=== PATIENT | female | born 2000 | race Hispanic/Latino ===

== ENCOUNTER 2022-05-14 12:26 | Emergency (ER) | payer SELFPAY ==
[2022-05-14] MEDS ORDERED: ACET-683 PO (13:29)
[2022-05-14] MEDS ORDERED: MULTTAB20 PO (13:29)
== END 2022-05-14 14:03 | disposition admitted as inpatient to this hospital (09) ==
LOC: M ED 12:26
DX: Z53.29 Procedure and treatment not carried out because of patient's decision for other reasons (principal)

== ENCOUNTER 2022-05-31 10:10 | Outpatient (CLI) | payer OTHER ==
[~2022-05-31] VITALS: Ht 154.9 cm; Wt 110.6 kg
[~2022-05-31 10:10] MED LIST: ACET-683 PO; MULTTAB20 PO
[2022-05-31 10:43] VITALS: BP 130/81
[2022-05-31 11:50] VITALS: BP 112/55
[2022-05-31] MEDS ORDERED: HOME MED LIST COMPLETE! XX SCH (12:25)
== END 2022-05-31 13:43 | disposition home or self-care (01) ==
LOC: M LDO 10:10
PROVIDERS: ATTEND Registered Nurse
DX: O47.03 False labor before 37 completed weeks of gestation, third trimester (principal); Z3A.37 37 weeks gestation of pregnancy; O34.219 Maternal care for unspecified type scar from previous cesarean delivery; O46.93 Antepartum hemorrhage, unspecified, third trimester; Z88.0 Allergy status to penicillin
CPT/HCPCS: 59025; G0378; G0463

== ENCOUNTER 2022-05-31 19:24 | Inpatient (IN) | payer OTHER ==
[2022-05-31] VITALS (24 sets, daily range): BP systolic 103–158; BP diastolic 51–81
[~2022-05-31] VITALS: Ht 154.9 cm; Wt 110.6 kg
[2022-05-31 20:15] LABS: HEMATOCRIT 37.7 % (36.0-47.0); HEMOGLOBIN 11.9 g/dl (12.0-15.5); MEAN CORPUSCULAR HEMOGLOBIN 26.4 pg (27.0-33.0); MEAN CORPUSCULAR HGB CONC 31.6 g/dl (32.0-36.5); MEAN CORPUSCULAR VOLUME 83.6 fl (80.0-96.0); PLATELET COUNT, AUTOMATED 387 10^3/uL (150-450); RED BLOOD COUNT 4.51 10^6/uL (4.00-5.40); WHITE BLOOD COUNT 14.8 10^3/uL (4.0-10.0)
[2022-05-31] MEDS ORDERED: LACTATED RINGER'S 1000 ML IV STA (20:24)
[2022-05-31] MEDS ORDERED: OXYTOCIN DRIP 30 UNITS in IV 1 EA IV PRN ×4 (20:25)
[2022-05-31] MEDS ORDERED: TRANEXAMIC ACID INJection 1,000 MG in NS 100 ML IV PRN (20:25)
[2022-05-31] MEDS ORDERED: LIDOCAINE 1% MDV 20ML VIAL INFIL PRN (20:25)
[2022-05-31] MEDS ORDERED: METHYLERGONOVINE MALEATE 0.2 MG/ML VIAL (J2210) IM PRN (20:25)
[2022-05-31] MEDS ORDERED: LR 1,000 ML IV SCH (20:25)
[2022-05-31] MEDS ORDERED: ePHEDrine SULFATE 25 MG/5 ML(5MG/ML) SYRINGE IVP PRN (21:00)
[2022-05-31] MEDS ORDERED: NALOXONE INJ 0.4MG/1ML VIAL (J2310 PER 1MG) IV PRN (21:00)
[2022-05-31] MEDS ORDERED: FENTANYL/ROPIVACAINE/NACL BAG 100 ML EPIDURAL SCH (21:00)
[2022-05-31] MEDS ORDERED: ONDANSETRON 4MG 2ML VIAL IV PRN (21:00)
[2022-05-31] MEDS ORDERED: EPIDURAL/PCA KEYS XX PRN (21:00)
[2022-05-31] MEDS ORDERED: diphenhydrAMINE 50MG/ML VIAL (J1200) IV PRN (21:00)
[2022-05-31] MEDS ORDERED: LR 500 ML IV PRN (21:00)
[2022-06-01] VITALS (15 sets, daily range): BP systolic 95–130; BP diastolic 50–75
[2022-06-01] MEDS ORDERED: OXYTOCIN DRIP 30 UNITS in IV 1 EA IV SCH (00:10)
[2022-06-01] MEDS ORDERED: LR 1,000 ML IV SCH (00:10)
[2022-06-01 04:12] LABS: CORD GAS ABE V -1.6; CORD GAS HCO3 V 24.3 MEQ/L; CORD GAS O2 SAT V 71.7 %; CORD GAS PCO2 V 45.4 mmHg; CORD GAS PH V 7.347 UNITS; CORD GAS PO2 V 29.3 mmHg; CORD GAS SBC V 22.6 MEQ/L; CORD GAS TCO2 V 25.7 MEQ/L
[2022-06-01 04:13] LABS: CORD GAS ABE A -0.9; CORD GAS HCO3 A 27.1 MEQ/L; CORD GAS O2 SAT A 53.4 %; CORD GAS PCO2 A 58.1 mmHg; CORD GAS PH A 7.286 UNITS; CORD GAS PO2 A 22.4 mmHg; CORD GAS SBC A 22.6 MEQ/L; CORD GAS TCO2 A 28.8 MEQ/L
[2022-06-01] MEDS ORDERED: METHYLERGONOVINE MALEATE 0.2 MG TAB PO PRN (09:15)
[2022-06-01] MEDS ORDERED: IBUPROFEN 800 MG TAB PO PRN (09:15)
[2022-06-01] MEDS ORDERED: DOCUSATE SODIUM 100MG CAPSULE PO PRN (09:15)
[2022-06-01] MEDS ORDERED: DIBUCAINE 1% OINTMENT 30GM TOP PRN (09:15)
[2022-06-01] MEDS ORDERED: RHOGAM 300 MCG (1500 IU) INJ (J2790) IM SCH (09:15)
[2022-06-01] MEDS ORDERED: IBUPROFEN 600MG TAB PO PRN (09:15)
[2022-06-01] MEDS ORDERED: ACETAMINOPHEN 500 MG TAB PO PRN (09:15)
[2022-06-01] MEDS: PRENATAL VITAMINS CHEWABLE TABLET PO SCH (10:28)
[2022-06-01] MEDS: ACETAMINOPHEN TAB 650MG DOSE (2X325MG) PO PRN (13:36)
[2022-06-02] MEDS: ACETAMINOPHEN TAB 650MG DOSE (2X325MG) PO PRN (06:05)
[2022-06-02 06:33] VITALS: BP 143/94
[2022-06-02] MEDS ORDERED: IBUP-1022 PO (07:20)
[2022-06-02] MEDS ORDERED: COLA100C5 PO (07:20)
[2022-06-02] MEDS: PRENATAL VITAMINS CHEWABLE TABLET PO SCH (08:07)
[2022-06-03] MEDS ORDERED: MEASLES,MUMPS,RUBELLA VACCINE INJ (MMR-II) (90707) SC.IMMUN ONE (09:00)
== END 2022-06-02 12:15 | disposition home or self-care (01) | DRG 807 ==
LOC: M LDO 19:24 → M LDI 19:38 → M OBS 06-01 07:10
PROVIDERS: ADMIT Obstetrics & Gynecology; ATTEND Obstetrics & Gynecology
PROC: 10E0XZZ Delivery of Products of Conception, External Approach (ICD-10-PCS; principal; 2022-06-01)
PROC: 0HQ9XZZ Repair Perineum Skin, External Approach (ICD-10-PCS; 2022-06-01)
PROC: 10907ZC Drainage of Amniotic Fluid, Therapeutic from Products of Conception, Via Natural or Artificial Opening (ICD-10-PCS; 2022-06-01)
DX: O34.211 Maternal care for low transverse scar from previous cesarean delivery (principal); Z37.0 Single live birth; Z3A.37 37 weeks gestation of pregnancy; O99.214 Obesity complicating childbirth; Z88.0 Allergy status to penicillin; O69.81X0 Labor and delivery complicated by cord around neck, without compression, not applicable or unspecified; O70.0 First degree perineal laceration during delivery; E66.9 Obesity, unspecified

== ENCOUNTER 2022-11-30 22:15 | Emergency (ER) | payer OTHER ==
[~2022-11-30] VITALS: Ht 154.9 cm; Wt 99.0 kg
[~2022-11-30 22:15] MED LIST changes: +COLA100C5 PO; +IBUP-1022 PO
[2022-12-01] MEDS ORDERED: IBUPROFEN 400MG TAB PO ONE (02:40)
[2022-12-01 03:02] VITALS: BP 135/72
== END 2022-12-01 03:39 | disposition home or self-care (01) ==
LOC: M ED 22:15 → EDBD 22:15 → M ED 12-01 03:39
DX: S52.502A Unspecified fracture of the lower end of left radius, initial encounter for closed fracture (principal); Y04.8XXA Assault by other bodily force, initial encounter; Y92.019 Unspecified place in single-family (private) house as the place of occurrence of the external cause; Y93.89 Activity, other specified; Y99.8 Other external cause status; J45.909 Unspecified asthma, uncomplicated

== ENCOUNTER → 2022-12-11 | Outpatient (CLI) | payer OTHER | LOC: M SOG 08:07 | PROVIDERS: ATTEND Physician Assistant | DX: S52.532A Colles' fracture of left radius, initial encounter for closed fracture (principal); Z53.8 Procedure and treatment not carried out for other reasons ==